=== PATIENT | male | born 1955 | race Caucasian/White ===

== ENCOUNTER 2017-05-08 19:05 | Emergency (ER) | payer MEDICARE ==
[2017-05-08 19:16] VITALS: BP 153/93
--- NOTE | 2017-05-08 20:11 | ERNOTE ---
Medical Problem HPI - Narrative Date of Service: 05/08/17 - General Chief Complaint: General Assessment Time Seen by Provider: 05/08/17 20:02 Source: patient, RN notes reviewed, old records Exam Limitations: intoxication - Immun/Allergies/Home Medications Immunizations: IMMUNIZATION HX Immunizations Up to Date No History of Influenza Vaccine No Hx Pneumococcal Vaccination No Allergies/Adverse Reactions: Allergies Iodinated Contrast Media - Oral and [IV Dye, Iodine Containing Contrast ] Allergy (Severe, Verified 04/10/16 17:30) Swelling (Other) Pt states swelling "all over." Home Medications: HOME MEDICATIONS Gabapentin 1,200 mg PO TID 12/02/12 [Last Taken 10/25/15] Naproxen Sodium [Aleve] 440 mg PO TID PRN 09/24/14 [Last Taken 10/25/15] Meclizine HCl 25 mg PO 05/08/17 [Last Taken Unknown] - History of Present History Narrative: 61 y/o male brought to the ED by a relative for increased falls and fatigue for the past few days. He has an appointment to see his PCP tomorrow. He has chronic back pain with neuropathy in his lower extremities. He also has a history of alcohol abuse. He reports that he has only had 2 beers today, but he appears quite intoxicated. He is dirty and incontinent of urine. Review of Systems - Review of Systems Constitutional: Present: fatigue, decreased activity level. Absent: fever, chills EYE: Present: no symptoms reported ENT: Present: no symptoms reported Respiratory: Absent: shortness of breath, cough Cardiology: Absent: chest pain, syncope Gastrointestinal/Abdominal: Present: eating less, drinking less. Absent: vomiting, diarrhea, abdominal pain Genitourinary: Present: no symptoms reported Musculoskeletal: Present: back pain, muscle pain Skin: Present: no symptoms reported Neurological: Present: numbness, tingling, pre-existing deficit. Absent: dizziness/light-headedness, weakness Endocrine: Present: no symptoms reported Hematologic/Lymphatic: Absent: easy bruising, easy bleeding Psych: Present: anxiety, depressed, emotional problems - Patient's Past Medical History Patient History - Medical: Alcohol Abuse, Anxiety, Chronic Pain, Depression, GERD, Other Patient History - Cardiac/Respiratory: Asthma, Coronary Heart Disease, Hypertension, Hyperlipidemia, Myocardial Infarction Patient History - Cancer: No Hx of Cancer Patient History - Surgical Procedures: Amputation, Cardiac stent, Other Patient History - Other: None - Family History Mother Family History - Medical: Family History - Cardiac/Respiratory: Myocardial Infarction Father Family History - Medical: , Other - Social History Living Situations: alone Abuse History: Hx -Substance Use Tx Psych History: Hx of Anxiety, Hx of Depression Smoking Status: Current every day smoker Cigarettes Packs Per Day: 1 Have you smoked in the past 12 months: Yes Do you dip or chew tobacco: No Patient requests Smoking Cessation Consult: No Initiate information on Smoking Cessation: No Alcohol Use: heavy Drug Use: none - Immunizations Immunizations Up to Date: No Hx Pneumococcal Vaccination: No History of Influenza Vaccine: No Physical Exam - Physical Exam General Appearance: Present: alert, no apparent distress, thin, other - Poor hygiene, incontinent of urine Head Exam: Present: normal inspection, no evidence of injury Eye Exam: Normal inspection: bilateral, PERRL: bilateral Ears, Nose, Throat: Present: normal ENT inspection Neck: Present: normal inspection, nontender, supple Respiratory: Present: no respiratory distress, normal breath sounds, no accessory muscle use, lungs clear Cardiovascular/Chest: Present: regular rate, rhythm, no murmur, normal peripheral pulses Extremity Exam: Present: normal except - - Right BKA Neurological Exam: Present: alert, oriented, no motor/sensory deficits, other - intoxicated. Absent: normal mood/affect Skin Exam: Present: normal color, warm/dry ED Progress - Results and Orders Patient's Lab Results:: I have reviewed the patient's lab results. - Vital Signs Patient's Vital Signs:: I have reviewed the patient's vital signs. Vital Signs: Vital Signs 05/08/17 19:10 Temperature 36.6 C Pulse Rate 70 Respiratory 18 Rate Blood Pressure 153/93 O2 Sat by Pulse 92 Oximetry - Progress/Reassessment Chief Complaint: General Assessment Progress:: Unchanged Plan - Plan Plan: ETOH level does not correlate with the 2 beers the patient reports having today. After being in the department for a time, he does not wish to stay for any further treatment, but his lab work is unremarkable. Has an appt. with PCP tomorrow. Departure - Departure Clinical Impression: Frequent falls, Alcohol abuse Disposition: Home Follow Up Needed Condition: Stable Instructions: Alcohol Abuse and Nutrition Additional Instructions: See Dr. Jara as scheduled tomorrow Stop drinking alcohol Referrals: Winnie Jara MD [Primary Care Provider] -
--- OUTSIDE RECORDS SUMMARY | 2017-05-08 20:13 | XMS REPORT | Continuity of Care Document ---
:1955 Author Organization [facility] ([facility]) Address [address] [place] [address] Phone [phone] Care Team Providers Name Role Phone Too Major Primary Care Provider [phone] Source Comments This disclosure is being made pursuant to the Care Everywhere program, applicable federal and state laws, and may not contain all informaitonavailable regarding this patient.[facility] ([facility]) Active Allergies and Adverse Reactions No Active Allergies Current Medications Not on file Active Problems Problem Noted Date Abscess of lung(513.0) 01/05/2007 Pneumonia, organism unspecified 09/30/2006 Other and unspecified alcohol dependence, unspecified drinking behavior 2005 Shortness of breath 09/05/2006 Other dyspnea and respiratory abnormality 09/05/2006 Swelling, mass, or lump in chest 09/05/2006 Immunizations Name Dates Previously Given Next Due Influenza, unspecified 09/04/2005 Social History Tobacco Use Types Packs/Day Years Used Date Never Assessed Last Filed Vital Signs Vital Sign Reading Time Taken Blood Pressure 143/77 01/05/2007 1:49 PM PODIATRIC PHYSICIAN Pulse 74 01/05/2007 1:49 PM PODIATRIC PHYSICIAN Temperature 36 C (96.8 F) 01/05/2007 1:49 PM PODIATRIC PHYSICIAN Respiratory Rate 16 01/05/2007 1:49 PM PODIATRIC PHYSICIAN Height 1.89 m (6' 2.4") 09/05/2006 12:17 PM CDT Weight 78.5 kg (173 lb 1 oz) 01/05/2007 1:49 PM PODIATRIC PHYSICIAN Body Mass Index 21.98 01/05/2007 1:49 PM PODIATRIC PHYSICIAN Oxygen Saturation - - Plan of Care Health Maintenance Due Date Last Done Comments Hepatitis B Vaccine (1 of 3 - Primary Series) 1955 Tdap Vaccine 1964 Lipid Disorder Screening 1971 Td Vaccine 1971 Pneumococcal Vaccine (1 of 1 - PPSV23) 1972 Colonoscopy 2003 Prostate Cancer Screening 2003 Zoster Vaccine 2013 Influenza Vaccine: Seasonal (#1) 06/21/2016 09/04/2005 HCV Screening Completed 09/06/2006 Results from Last 3 Months Not on file
[2017-05-08] MEDS ORDERED: MULTIVIT INFUSN,ADULT 4,VIT K 10 ML, THIAMINE HCL 100 MG in NORMAL SALINE 1,000 ML IV SCH (20:15)
[2017-05-08 20:20] LABS: Hematocrit 46.1 % (42.0-52.0); Mean Cell Volume 94.5 fl (78-100); Mean Corpuscular Hemoglobin 32.8 pg (27-31); Mean Corpuscular Hgb Conc 34.7 g/dl (32-36); Mean Platelet Volume 11.6 fl (6.0-9.5); Neutrophil # 2.6 K/mm3 (1.3-6.0); Neutrophil % 45.9 % (42-75.0); Platelet Count 95 K/mm3 (150-450); Red Blood Count 4.88 M/mm3 (4.7-6.0); Red Cell Distribution Width 14.3 % (11.5-14.0); White Blood Count 5.6 K/mm3 (4.0-10.5)
[2017-05-08 20:34] LABS: Albumin * 3.6 gm/dl (3.4-5.0); Anion Gap 15.8 mmol/L (6.8-13.8); BUN/Creatinine Ratio 7.2 (9.0-21.6); Bilirubin, Total 0.9 mg/dL (0.0-1.1); Ca. Corrected For Albumin 8.7 mg/dL (8.4-10.2); Calcium * 8.7 mg/dL (7.9-10.9); Carbon Dioxide 29.1 mmol/L (24-32.6); Potassium 3.9 mmol/L (3.4-4.6); Total Protein 7.6 gm/dL (6.2-8.2)
== END 2017-05-08 20:45 | disposition home or self-care (01) ==
LOC: ER 19:05
DX: F10.10 Alcohol abuse, uncomplicated (principal); R29.6 Repeated falls
CPT/HCPCS: 36415; 80053; 85025; 99282; G0481

== ENCOUNTER 2017-06-14 14:51 | Inpatient (IN) | payer MEDICARE ==
[2017-06-14 15:54] LABS: Hematocrit 39.3 % (42.0-52.0); Hemoglobin 13.3 gm/dL (13.5-18.0); Mean Cell Volume 99.5 fl (78-100); Mean Corpuscular Hemoglobin 33.7 pg (27-31); Mean Corpuscular Hgb Conc 33.8 g/dl (32-36); Mean Platelet Volume 10.7 fl (6.0-9.5); Neutrophil # 2.8 K/mm3 (1.3-6.0); Neutrophil % 49.6 % (42-75.0); Platelet Count 262 K/mm3 (150-450); Red Blood Count 3.95 M/mm3 (4.7-6.0); Red Cell Distribution Width 13.2 % (11.5-14.0); White Blood Count 5.6 K/mm3 (4.0-10.5)
[2017-06-14 15:57] LABS: Albumin * 2.9 gm/dl (3.4-5.0); Anion Gap 11.1 mmol/L (6.8-13.8); BUN/Creatinine Ratio 8.2 (9.0-21.6); Bilirubin, Total 0.4 mg/dL (0.0-1.1); CRP 2.8 mg/dL (0.0-0.9); Ca. Corrected For Albumin 8.8 mg/dL (8.4-10.2); Calcium * 8.2 mg/dL (7.9-10.9); Carbon Dioxide 31.3 mmol/L (24-32.6); Potassium 3.4 mmol/L (3.4-4.6); Total Protein 7.2 gm/dL (6.2-8.2); Uric Acid 4.1 mg/dL (2.6-7.2)
--- NOTE | 2017-06-14 16:11 | CONS ---
[facility] - General Date of Service: 06/14/17 Narrative: Consultation on Jose J Decker-patient's hip request of Dr. Jara for concern of septic olecranon bursitis right elbow and right below knee and amputation wound. He reports his right elbow has been swollen and boggy for about a month. He reports about a week ago he was unable to start expressing fluid from it when he squeezes it. He reports becoming increasingly sore so presented to Dr. Jara's office today for evaluation. He also reports that his prosthesis is been rubbing on his right lower extremity is cut a superficial ulceration. He reports no drainage from this ulceration or pain. - History of Present Illness Allergies/Adverse Reactions: Allergies Iodinated Contrast Media - Oral and [IV Dye, Iodine Containing Contrast ] Allergy (Severe, Verified 04/10/16 17:30) Swelling (Other) Pt states swelling "all over." Home Medications: Home Medications Medication Instructions Recorded Last Taken Gabapentin 1,200 mg PO TID 12/02/12 10/25/15 Naproxen Sodium [Aleve] 440 mg PO TID PRN 09/24/14 10/25/15 Meclizine HCl 25 mg PO 05/08/17 Unknown - Patient's Past Medical History Patient History - Medical: Alcohol Abuse, Anxiety, Chronic Pain, Depression, GERD, Other Patient History - Cardiac/Respiratory: Asthma, Myocardial Infarction Patient History - Cancer: No Hx of Cancer Patient History - Surgical Procedures: Amputation, Cardiac stent, Other Patient History - Other: None - Family History Mother Family History - Medical: Family History - Cardiac/Respiratory: Myocardial Infarction Father Family History - Medical: , Other - Social History Living Situations: alone Abuse History: Hx -Substance Use Tx Psych History: Hx of Anxiety, Hx of Depression Alcohol Use: heavy Drug Use: none - Immunizations Immunizations Up to Date: No Hx Pneumococcal Vaccination: No History of Influenza Vaccine: No Procedures AMPUTATION STUMP SHO (03/19/15) CARDIOPULM RESUSCITA NOS (09/21/10) COLONOSCOPY (01/20/10) INJECT/INFUSE THROMBOLYTIC AGENT (09/21/10) OTHER LOCAL DESTRUC SKIN (12/16/14) Physical Examination - Exam Narrative: Dressings remove Mr. Decker's right elbow bloody serous drainage noted from the pinpoint opening that is about a millimeter in diameter. Skin is swollen and boggy with mild erythema. Skin was cleaned with chlorhexidine 22-gauge needle used to aspirate approximately 2 mL's of bloody serous fluid which will be sent for culture. Elbow range of motion does not produce any pain in the joint and his infection does not appear to involve the joint. X-rays reviewed show lucency of olecranon concerning for possible bone involvement of this infection. Examination of right lower extremity after taken off prosthesis shows an ulceration medial stump. Ulceration is approximately 4 mm x 3 mm with a depth of 2 mm. This clean and mild periwound erythema noted. No active drainage. The knee joint is not swollen or tender. No pain with knee joint range of motion. X-rays reviewed show degenerative changes of the knee joint and postsurgical changes consistent with his below-knee amputation. Vital Signs: Vital Signs - Last Taken Temp 36.6 C 05/08/17 20:45 Pulse Resp BP 153/93 05/08/17 20:45 Pulse Ox - Results and Findings: Lab/Microbiology results last 24 hrs: Abnormal/Pending Laboratory Last 24 HRS 06/14/17 06/14/17 15:25 15:25 RBC 3.95 L Hgb 13.3 L Hct 39.3 L MCH 33.7 H MPV 10.7 H Monocytes % 12.5 H BUN 5 L Est GFR (Non-Af Amer) 142 H BUN/Creatinine Ratio 8.2 L AST 73 H Alkaline Phosphatase 223 H C-Reactive Prot, Quant 2.8 H Albumin 2.9 L - Assessments/Findings (1) Septic olecranon bursitis of right elbow Diagnosis(s): At this point time with aspirate for cultures. Recommend starting his IV antibiotics. Change dressings as needed for drainage. We'll see how he responds to IV antibiotics Problem: Acute (2) BKA stump complication Diagnosis(s): Recommend he stop wearing his prosthesis on the right looks showed allow for partial ulceration to heal. Band-Aid applied to wound. Problem: Acute
[2017-06-14] MEDS ORDERED: ACETAMINOPHEN 325 MG TABLET PO PRN (16:20)
[2017-06-14] MEDS: ceFAZolin SODIUM 1 GM in DEXTROSE 5 % IN WATER 100 ML IV SCH ×4 (17:09→23:24)
[2017-06-14] MEDS: GABAPENTIN 600 MG TABLET PO SCH (20:58)
[2017-06-15] MEDS: ceFAZolin SODIUM 1 GM in DEXTROSE 5 % IN WATER 100 ML IV SCH ×8 (05:30→22:47)
[2017-06-15] MEDS: GABAPENTIN 600 MG TABLET PO SCH ×3 (07:36→20:19)
[2017-06-15] MEDS: ENOXAPARIN SODIUM 40 MG/0.4 ML SYRG SC SCH (09:58)
--- NOTE | 2017-06-15 13:19 | PN ---
Subjective - Date and Time Seen Date: 06/15/17 Time: 13:12 Subjective Narrative: afebrile. feels better. he says he cannot use crutches or walker when he is not uisng his porsthesis as he has poor balance. Objective - Review of Systems Generalized/Overall Review: Reports: Weakness. Denies: Chills, Fever EENTM: Reports: No Symptoms Reported Respiratory: Denies: Cough, Shortness of Breath Cardiac: Denies: Chest Pain, Palpitations Abdominal: Denies: Nausea, Vomiting Genitourinary Symptoms: Denies: Urgency, Frequency Musculoskeletal Complaints: Reports: Joint Pain - Vitals Vitals: Last Vital Signs Temp 36.4 C L 06/15/17 11:25 Pulse 84 06/15/17 11:25 Resp 18 06/15/17 11:25 BP 124/78 06/15/17 11:25 Pulse Ox 94 06/15/17 11:25 - Abnormal Lab Findings Abnormal Lab Findings: Abnormal Lab Results 06/14/17 06/14/17 06/14/17 Range/Units 15:25 15:25 15:25 RBC 3.95 L (4.7-6.0) M/mm3 Hgb 13.3 L (13.5-18.0) gm/dL Hct 39.3 L (42.0-52.0) % MCH 33.7 H (27-31) pg MPV 10.7 H (6.0-9.5) fl Monocytes % 12.5 H (0.0-9) % ESR 41 H (0-10) mm/hr BUN 5 L (6-23) mg/dL Est GFR (Non-Af Amer) 142 H (60-130) mL/min BUN/Creatinine Ratio 8.2 L (9.0-21.6) AST 73 H (0-48) U/L Alkaline Phosphatase 223 H (50-170) U/L C-Reactive Prot, Quant 2.8 H (0.0-0.9) mg/dL Albumin 2.9 L (3.4-5.0) gm/dl - Exam Constitutional: Present: Alert, Oriented x3, Cooperative, Thin and frail ENT Exam: Present: hearing grossly normal Neck: Present: supple Breasts: Present: Exam deferred Respiratory: Present: normal breath sounds, No rales, No wheezing Cardiovascular/Chest: Present: regular rate, rhythm, no JVD, no murmur Abdomen: Present: Normal bowel sounds, soft, nontender, nondistended Extremity: Present: no calf tenderness, other - positive inflammed/infected olecranon bursa, right elbow, positive RBKA Assessment/Plan - Problems/Diagnosis (1) BKA stump complication Problem: Acute Narrative: pressure ulcer, right knee. Prosthetic company will need to measure/adjust or give new prosthesis . (2) Septic olecranon bursitis of right elbow Problem: Acute Narrative: continue IV Ancef. preliminary culture -NG. (3) Hypertension Problem: Acute Qualifiers: Hypertension type: essential hypertension Qualified Code(s): I10 - Essential (primary) hypertension (4) Coronary artery disease Problem: Chronic Qualifiers: Coronary Disease-Associated Artery/Lesion type: unspecified vessel or lesion type Associated angina: without angina Narrative: s/p Stenting (5) Hyperlipidemia Problem: Chronic (6) Neuropathy Problem: Chronic (7) Cervical spinal stenosis Problem: Chronic
--- NOTE | 2017-06-15 13:34 | PN ---
Subjective - Date and Time Seen Date: 06/15/17 Time: 13:31 Subjective Narrative: Reports elbow is "sore". Denies increasing pain. Reports he does not feel sick. No complaints. Objective Objective Narrative: Jian wrap removed, less erythema of olecranon skin, swelling, serous drainage on 2x2, elbow ROM does not express fluid, culture positive for MRSA. - Vitals Vitals: Last Vital Signs Temp 36.4 C L 06/15/17 11:25 Pulse 84 06/15/17 11:25 Resp 18 06/15/17 11:25 BP 124/78 06/15/17 11:25 Pulse Ox 94 06/15/17 11:25 - Abnormal Lab Findings Abnormal Lab Findings: Abnormal Lab Results 06/14/17 06/14/17 06/14/17 Range/Units 15:25 15:25 15:25 RBC 3.95 L (4.7-6.0) M/mm3 Hgb 13.3 L (13.5-18.0) gm/dL Hct 39.3 L (42.0-52.0) % MCH 33.7 H (27-31) pg MPV 10.7 H (6.0-9.5) fl Monocytes % 12.5 H (0.0-9) % ESR 41 H (0-10) mm/hr BUN 5 L (6-23) mg/dL Est GFR (Non-Af Amer) 142 H (60-130) mL/min BUN/Creatinine Ratio 8.2 L (9.0-21.6) AST 73 H (0-48) U/L Alkaline Phosphatase 223 H (50-170) U/L C-Reactive Prot, Quant 2.8 H (0.0-0.9) mg/dL Albumin 2.9 L (3.4-5.0) gm/dl - Exam Constitutional: Present: Alert, Cooperative, No distress Assessment/Plan - Problems/Diagnosis (1) Septic olecranon bursitis of right elbow Problem: Acute Narrative: IV antibiotics, wound care, keep dry dressings on elbow, compression with jian wrap. (2) BKA stump complication Problem: Acute
[2017-06-15] MEDS: traMADol HCL 50 MG TABLET PO PRN (14:59)
[2017-06-15] MEDS ORDERED: VANCOMYCIN HCL 1 GM in DEXTROSE 5 % IN WATER 250 ML IV SCH ×2 (15:30)
[2017-06-15] MEDS: VANCOMYCIN HCL 1.25 GM in DEXTROSE 5 % IN WATER 250 ML IV SCH ×4 (19:25→19:26)
[2017-06-16] MEDS: traMADol HCL 50 MG TABLET PO PRN ×2 (00:46→21:15)
[2017-06-16] MEDS: VANCOMYCIN HCL 1.25 GM in DEXTROSE 5 % IN WATER 250 ML IV SCH ×4 (02:58→15:16)
[2017-06-16] MEDS: ceFAZolin SODIUM 1 GM in DEXTROSE 5 % IN WATER 100 ML IV SCH ×8 (05:03→22:05)
[2017-06-16] MEDS: GABAPENTIN 600 MG TABLET PO SCH ×3 (07:28→21:15)
--- NOTE | 2017-06-16 08:28 | PN ---
Subjective - Date and Time Seen Date: 06/16/17 Time: 08:23 Subjective Narrative: patient feeling better. PT is deferring gait exercises due to elbow and patient unless prosthesis is fixed. Objective - Review of Systems Generalized/Overall Review: Reports: Weakness. Denies: Chills, Fever EENTM: Reports: No Symptoms Reported Respiratory: Denies: Cough, Shortness of Breath Cardiac: Denies: Chest Pain, Palpitations Abdominal: Denies: Nausea, Vomiting Genitourinary Symptoms: Denies: Urgency, Frequency Musculoskeletal Complaints: Reports: Joint Pain - Vitals Vitals: Last Vital Signs Temp 36.8 C 06/16/17 05:40 Pulse 73 06/16/17 05:40 Resp 18 06/16/17 05:40 BP 120/74 06/16/17 05:40 Pulse Ox 93 06/16/17 05:40 - Exam Constitutional: Present: Alert, Oriented x3, Cooperative ENT Exam: Present: hearing grossly normal Neck: Present: supple Breasts: Present: Exam deferred Respiratory: Present: decreased breath sounds, No rales, No wheezing Cardiovascular/Chest: Present: regular rate, rhythm, no JVD, no murmur Extremity: Present: no pedal edema, other - positive RBKA, pressure ulcer, medial tibial plateau, old circumferential scar from prior ulcer, medial femoral condyle. right elbow infected olecranon burisits Assessment/Plan - Problems/Diagnosis (1) Septic olecranon bursitis of right elbow Problem: Acute Narrative: 3rd day of IV antibiotic, question of OM. will get MRI . will talk to Ortho. (2) BKA stump complication Problem: Acute (3) Hypertension Problem: Acute Qualifiers: Hypertension type: essential hypertension Qualified Code(s): I10 - Essential (primary) hypertension (4) Coronary artery disease Problem: Chronic Qualifiers: Coronary Disease-Associated Artery/Lesion type: unspecified vessel or lesion type Associated angina: without angina (5) Hyperlipidemia Problem: Chronic (6) Neuropathy Problem: Chronic (7) Cervical spinal stenosis Problem: Chronic
[2017-06-16] MEDS: ENOXAPARIN SODIUM 40 MG/0.4 ML SYRG SC SCH (09:27)
[2017-06-16] MEDS ORDERED: LORazepam 2 MG/ML DISP.SYRIN IV ONE (14:12)
[2017-06-16] MEDS ORDERED: LORazepam 2 MG/ML DISP.SYRIN ONE ×2 (14:18→14:19)
[2017-06-17] MEDS: VANCOMYCIN HCL 1.25 GM in DEXTROSE 5 % IN WATER 250 ML IV SCH ×2 (03:04)
[2017-06-17] MEDS: ceFAZolin SODIUM 1 GM in DEXTROSE 5 % IN WATER 100 ML IV SCH ×2 (05:06)
[2017-06-17 05:46] LABS: Hemoglobin 13.8 gm/dL (13.5-18.0); Mean Cell Volume 98.3 fl (78-100); Mean Corpuscular Hemoglobin 33.9 pg (27-31); Mean Corpuscular Hgb Conc 34.5 g/dl (32-36); Neutrophil # 2.9 K/mm3 (1.3-6.0); Neutrophil % 50.6 % (42-75.0); Platelet Count 235 K/mm3 (150-450); Red Blood Count 4.07 M/mm3 (4.7-6.0); White Blood Count 5.7 K/mm3 (4.0-10.5)
[2017-06-17 06:01] LABS: BUN/Creatinine Ratio 9.5 (9.0-21.6); CRP 1.6 mg/dL (0.0-0.9); Calcium * 8.5 mg/dL (7.9-10.9); Carbon Dioxide 31.7 mmol/L (24-32.6); Estimated Creat Clear 139.5; Potassium 3.7 mmol/L (3.4-4.6)
[2017-06-17] MEDS: GABAPENTIN 600 MG TABLET PO SCH ×3 (06:34→21:07)
[2017-06-17] MEDS: ENOXAPARIN SODIUM 40 MG/0.4 ML SYRG SC SCH (08:55)
--- NOTE | 2017-06-17 10:01 | PN ---
Subjective - Date and Time Seen Date: 06/17/17 Time: 09:56 Subjective Narrative: Patien is afebrile. Culture is MRSA. [place] prosthesis has modified his prosthetisis. Objective - Review of Systems Generalized/Overall Review: Reports: Weakness. Denies: Chills, Fever EENTM: Reports: No Symptoms Reported Respiratory: Denies: Cough, Shortness of Breath Cardiac: Denies: Edema, Palpitations Abdominal: Denies: Nausea, Vomiting Musculoskeletal Complaints: Reports: Joint Pain - Vitals Vitals: Last Vital Signs Temp 36.4 C L 06/17/17 03:08 Pulse 61 06/17/17 03:08 Resp 18 06/17/17 03:08 BP 141/85 06/17/17 03:08 Pulse Ox 92 06/17/17 03:08 - Abnormal Lab Findings Abnormal Lab Findings: Abnormal Lab Results 06/17/17 06/17/17 06/17/17 Range/Units 05:43 05:43 05:43 RBC 4.07 L (4.7-6.0) M/mm3 Hct 40.0 L (42.0-52.0) % MCH 33.9 H (27-31) pg MPV 11.0 H (6.0-9.5) fl Monocytes % 10.9 H (0.0-9) % ESR 24 H (0-10) mm/hr Est GFR (Non-Af Amer) 137 H (60-130) mL/min Random Glucose 115 H (70-110) mg/dL C-Reactive Prot, Quant 1.6 H (0.0-0.9) mg/dL - Exam Constitutional: Present: Alert, Oriented x3, Cooperative ENT Exam: Present: hearing grossly normal Neck: Present: supple Breasts: Present: Exam deferred Respiratory: Present: decreased breath sounds, No rales, No wheezing Cardiovascular/Chest: Present: regular rate, rhythm, no JVD, no murmur Abdomen: Present: Normal bowel sounds, soft, nontender, nondistended Extremity: Present: no calf tenderness, other - RBKA, positive pressure ulcer , positive infectged olecfranon bursa Assessment/Plan - Problems/Diagnosis (1) Septic olecranon bursitis of right elbow Problem: Acute Narrative: on IV Vanco. for MRI of right elbow. will change to IV Bactrim . ADDENDUM: MRI again was not succesful today despite anesthesia. will dicsuss with Ortho. (2) BKA stump complication Problem: Acute Narrative: will do aquacel Ag and cover with mepilex. (3) Hypertension Problem: Acute Qualifiers: Hypertension type: essential hypertension Qualified Code(s): I10 - Essential (primary) hypertension (4) Coronary artery disease Problem: Chronic Qualifiers: Coronary Disease-Associated Artery/Lesion type: unspecified vessel or lesion type Associated angina: without angina (5) Hyperlipidemia Problem: Chronic (6) Neuropathy Problem: Chronic (7) Cervical spinal stenosis Problem: Chronic
[2017-06-17] MEDS: SULFAMETHOXAZOLE/TRIMETHOPRIM 10 ML in DEXTROSE 5 % IN WATER 250 ML IV SCH ×4 (11:21→23:16)
[2017-06-17] MEDS: traMADol HCL 50 MG TABLET PO PRN (19:28)
[2017-06-18] MEDS: GABAPENTIN 600 MG TABLET PO SCH ×3 (06:34→20:51)
[2017-06-18] MEDS: ENOXAPARIN SODIUM 40 MG/0.4 ML SYRG SC SCH (08:48)
[2017-06-18] MEDS: SULFAMETHOXAZOLE/TRIMETHOPRIM 10 ML in DEXTROSE 5 % IN WATER 250 ML IV SCH ×4 (10:32→23:04)
--- NOTE | 2017-06-18 14:07 | PN ---
Subjective - Date and Time Seen Date: 06/18/17 Time: 14:05 Subjective Narrative: patient did have his MRI yesterday. Objective - Review of Systems Generalized/Overall Review: Reports: Weakness. Denies: Chills, Fever EENTM: Reports: No Symptoms Reported Respiratory: Denies: Cough, Shortness of Breath Cardiac: Denies: Chest Pain, Palpitations Abdominal: Denies: Nausea, Vomiting Genitourinary Symptoms: Denies: Urgency, Frequency Musculoskeletal Complaints: Reports: Joint Pain - Vitals Vitals: Last Vital Signs Temp 36.4 C L 06/18/17 10:07 Pulse 73 06/18/17 10:07 Resp 16 06/18/17 10:07 BP 100/53 06/18/17 10:07 Pulse Ox 97 06/18/17 10:07 - Exam Constitutional: Present: Alert, Oriented x3, Cooperative, Thin and frail ENT Exam: Present: hearing grossly normal Neck: Present: supple Breasts: Present: Exam deferred Respiratory: Present: decreased breath sounds, No rales, No wheezing Cardiovascular/Chest: Present: regular rate, rhythm, no gallop, no JVD Abdomen: Present: Normal bowel sounds, soft, nontender, nondistended Extremity: Present: no calf tenderness, other - right pressure ulcer, knee, Positive infecterd olecranon bursitis Assessment/Plan - Problems/Diagnosis (1) Septic olecranon bursitis of right elbow Problem: Acute Narrative: Continue IV antibiotics. MRI suspicious OM of the olecranon. will order for PICC line once suspicion is verified by Ortho. (2) BKA stump complication Problem: Acute Narrative: continue with Aquacel Ag and Mepilex for protection. (3) Hypertension Problem: Acute Qualifiers: Hypertension type: essential hypertension Qualified Code(s): I10 - Essential (primary) hypertension (4) Coronary artery disease Problem: Chronic Qualifiers: Coronary Disease-Associated Artery/Lesion type: unspecified vessel or lesion type Associated angina: without angina (5) Hyperlipidemia Problem: Chronic (6) Neuropathy Problem: Chronic (7) Cervical spinal stenosis Problem: Chronic
[2017-06-18] MEDS ORDERED: VANCOMYCIN HCL LEVEL XX ONE (15:00)
[2017-06-19] MEDS: GABAPENTIN 600 MG TABLET PO SCH ×3 (06:38→20:12)
[2017-06-19] MEDS: traMADol HCL 50 MG TABLET PO PRN (06:38)
[2017-06-19] MEDS: ENOXAPARIN SODIUM 40 MG/0.4 ML SYRG SC SCH (09:22)
--- NOTE | 2017-06-19 09:35 | PN ---
Subjective - Date and Time Seen Date: 06/19/17 Time: 09:26 Subjective Narrative: Afebrile. On IV Bactrim per sensitivity. Vanco SARAN is 2 . day # 6 of IV antibiotics. patient's last surgery was last year and did not have any anesthesia, cardiopulmonary/bleeding complications. . He denies CP/ palpitations. Admits to SOB with exertion. He is a smoker. Will do CBC, BMP, INR , EKG, CXR today. He can proceed with anticipated surgery pending labs. ADDENDUM: CBC and BMP are WNL, EKG showed NSR, CXR showed no acute cardiopulmonary findings. He may proceed with anticipated surgery of bursectomy , debridement and bone biopsy. Objective - Review of Systems Generalized/Overall Review: Denies: Weakness, Chills, Fever EENTM: Reports: No Symptoms Reported Respiratory: Denies: Cough, Shortness of Breath Cardiac: Denies: Chest Pain, Edema, Palpitations Abdominal: Denies: Nausea, Vomiting Genitourinary Symptoms: Denies: Urgency, Frequency Musculoskeletal Complaints: Reports: Joint Pain - Vitals Vitals: Last Vital Signs Temp 36.4 C L 06/19/17 06:31 Pulse 76 06/19/17 06:31 Resp 16 06/19/17 06:31 BP 139/86 06/19/17 06:31 Pulse Ox 94 06/19/17 06:31 - Abnormal Lab Findings Abnormal Lab Findings: Abnormal Lab Results 06/18/17 Range/Units 14:46 Vancomycin Trough 4.2 L (10.0-20.0) mcg/mL - Exam Constitutional: Present: Oriented x3, Cooperative ENT Exam: Present: hearing grossly normal Neck: Present: supple Breasts: Present: Exam deferred Respiratory: Present: decreased breath sounds, No rales, No wheezing Cardiovascular/Chest: Present: regular rate, rhythm, no JVD, no murmur Abdomen: Present: Normal bowel sounds, soft, nontender, nondistended Extremity: Present: other - right BKA, right infected olecranon bursa, right pressure ulcer , knee Assessment/Plan - Problems/Diagnosis (1) Septic olecranon bursitis of right elbow Problem: Acute Narrative: MRSA on culture. MRI is suspicious for OM , right olecranon. continue with IV antibiotics. Discussed with Ortho- possible surgery in the morning. (2) BKA stump complication Problem: Acute (3) Hypertension Problem: Acute Qualifiers: Hypertension type: essential hypertension Qualified Code(s): I10 - Essential (primary) hypertension (4) Coronary artery disease Problem: Chronic Qualifiers: Coronary Disease-Associated Artery/Lesion type: unspecified vessel or lesion type Associated angina: without angina (5) Hyperlipidemia Problem: Chronic (6) Neuropathy Problem: Chronic (7) Cervical spinal stenosis Problem: Chronic
[2017-06-19 10:06] LABS: Hematocrit 43.4 % (42.0-52.0); Hemoglobin 14.3 gm/dL (13.5-18.0); Mean Cell Volume 100.7 fl (78-100); Mean Corpuscular Hemoglobin 33.2 pg (27-31); Mean Corpuscular Hgb Conc 32.9 g/dl (32-36); Mean Platelet Volume 10.9 fl (6.0-9.5); Neutrophil % 56.8 % (42-75.0); Platelet Count 253 K/mm3 (150-450); Red Blood Count 4.31 M/mm3 (4.7-6.0); Red Cell Distribution Width 13.1 % (11.5-14.0)
[2017-06-19 10:23] LABS: Anion Gap 10.9 mmol/L (6.8-13.8); BUN/Creatinine Ratio 12.3 (9.0-21.6); Calcium * 8.8 mg/dL (7.9-10.9); Carbon Dioxide 30.5 mmol/L (24-32.6); Estimated Creat Clear 120.4; Potassium 4.4 mmol/L (3.4-4.6)
[2017-06-19 10:24] LABS: Prothrombin Time (Patient) 10.2 Seconds (9.4-11.4)
[2017-06-19 10:26] LABS: INR 0.98 INR (0.90-1.10)
[2017-06-19] MEDS: NICOTINE 21 MG PATC TD SCH (10:50)
[2017-06-19] MEDS: SULFAMETHOXAZOLE/TRIMETHOPRIM 10 ML in DEXTROSE 5 % IN WATER 250 ML IV SCH ×4 (10:51→23:00)
--- NOTE | 2017-06-19 13:37 | PN ---
Subjective - Date and Time Seen Date: 06/19/17 Time: 13:35 Subjective Narrative: He reports improved pain. He still has some swelling. He did undergo a partial MRI with sedation which was concerning for osteomyelitis but overall he feels he is doing better. Objective - Vitals Vitals: Last Vital Signs Temp 36.4 C L 06/19/17 10:22 Pulse 71 06/19/17 10:22 Resp 16 06/19/17 10:22 BP 132/87 06/19/17 10:22 Pulse Ox 98 06/19/17 10:22 - Abnormal Lab Findings Abnormal Lab Findings: Abnormal Lab Results 06/18/17 06/19/17 06/19/17 Range/Units 14:46 10:00 10:00 RBC 4.31 L (4.7-6.0) M/mm3 MCV 100.7 H (78-100) fl MCH 33.2 H (27-31) pg MPV 10.9 H (6.0-9.5) fl Monocytes % 11.6 H (0.0-9) % Random Glucose 118 H (70-110) mg/dL Vancomycin Trough 4.2 L (10.0-20.0) mcg/mL - Exam Exam Narrative: Right upper extremity: Moderate erythema, serous type drainage from a small punctate wound at the tip of the olecranon, fullness to his elbow, no pain with elbow range of motion, tenderness at the tip of the olecranon, he is neurovascular intact Assessment/Plan Plan Narrative: Based on his MRI findings as well as ongoing MRSA positive olecranon bursitis, we will plan for excision of olecranon and possible bone biopsy versus partial excision of his olecranon. The risks and recovery were discussed. He will be nothing by mouth after midnight and consent will be obtained. - Problems/Diagnosis (1) Septic olecranon bursitis of right elbow Problem: Acute
[2017-06-20] MEDS: GABAPENTIN 600 MG TABLET PO SCH ×3 (07:45→20:23)
--- NOTE | 2017-06-20 07:57 | PREOP NOTE ---
Preoperative Progress Note - Preoperative Changes Changes to Preop Condition?: No Changes
--- NOTE | 2017-06-20 08:42 | PN ---
Subjective - Date and Time Seen Date: 06/20/17 Time: 08:39 Subjective Narrative: Patient is NPO for surgery today. Objective - Review of Systems Generalized/Overall Review: Denies: Weakness, Chills, Fever EENTM: Reports: No Symptoms Reported Respiratory: Denies: Cough, Shortness of Breath, Orthopnea Cardiac: Denies: Chest Pain, Edema, Palpitations Abdominal: Denies: Nausea, Vomiting Genitourinary Symptoms: Denies: Urgency, Frequency Musculoskeletal Complaints: Reports: Joint Pain - Vitals Vitals: Last Vital Signs Temp 36.4 C L 06/20/17 07:48 Pulse 78 06/20/17 07:48 Resp 18 06/20/17 07:48 BP 127/84 06/20/17 07:48 Pulse Ox 96 06/20/17 07:48 - Abnormal Lab Findings Abnormal Lab Findings: Abnormal Lab Results 06/19/17 06/19/17 Range/Units 10:00 10:00 RBC 4.31 L (4.7-6.0) M/mm3 MCV 100.7 H (78-100) fl MCH 33.2 H (27-31) pg MPV 10.9 H (6.0-9.5) fl Monocytes % 11.6 H (0.0-9) % Random Glucose 118 H (70-110) mg/dL - Exam Constitutional: Present: Alert, Oriented x3, Cooperative, Thin and frail ENT Exam: Present: hearing grossly normal Neck: Present: supple Breasts: Present: Exam deferred Respiratory: Present: decreased breath sounds, No rales, No wheezing Cardiovascular/Chest: Present: regular rate, rhythm, no JVD, no murmur Abdomen: Present: Normal bowel sounds, soft, nontender, nondistended Extremity: Present: no calf tenderness, other - pressure ulcer, tight knee; positive infected olecranon bursa Assessment/Plan - Problems/Diagnosis (1) Septic olecranon bursitis of right elbow Problem: Acute Narrative: on IV Bactrim for MRSA. Vanco SARAN is 2. for surgery today. if OM , will need PICC line for IV antibiotics for 4-6 weeks. (2) BKA stump complication Problem: Acute (3) Hypertension Problem: Acute Qualifiers: Hypertension type: essential hypertension Qualified Code(s): I10 - Essential (primary) hypertension (4) Coronary artery disease Problem: Chronic Qualifiers: Coronary Disease-Associated Artery/Lesion type: unspecified vessel or lesion type Associated angina: without angina (5) Hyperlipidemia Problem: Chronic (6) Neuropathy Problem: Chronic (7) Cervical spinal stenosis Problem: Chronic
[2017-06-20] MEDS: NICOTINE 21 MG PATC TD SCH (10:12)
[2017-06-20] MEDS: SULFAMETHOXAZOLE/TRIMETHOPRIM 10 ML in DEXTROSE 5 % IN WATER 250 ML IV SCH ×4 (11:19→23:15)
[2017-06-20] MEDS ORDERED: RINGER'S SOLUTION,LACTATED 1,000 ML IV ONE ×2 (13:15→13:53)
[2017-06-20] MEDS ORDERED: ceFAZolin SODIUM 1 GM VIAL IV ONE (13:30)
[2017-06-20] MEDS: ENOXAPARIN SODIUM 40 MG/0.4 ML SYRG SC SCH (13:53)
[2017-06-20] MEDS ORDERED: BUPIVACAINE HCL 50 ML VIAL IJ ONE (14:15)
[2017-06-20] MEDS: traMADol HCL 50 MG TABLET PO PRN ×2 (16:14→23:20)
[2017-06-21] MEDS: GABAPENTIN 600 MG TABLET PO SCH ×3 (07:09→20:12)
--- NOTE | 2017-06-21 08:02 | PN ---
Subjective - Date and Time Seen Date: 06/21/17 Time: 08:00 Subjective Narrative: No concerns this morning. His drain is in place and draining. He is using his right hand which I instructed him to limit as he was trying to eat with this while we were trying to limit his flexion to no greater than 45 Objective - Vitals Vitals: Last Vital Signs Temp 36.7 C 06/20/17 22:46 Pulse 71 06/21/17 05:01 Resp 12 06/21/17 05:01 BP 91/66 06/21/17 05:01 Pulse Ox 96 06/21/17 05:01 - Exam Exam Narrative: Right upper extremity: Dressings in place, he is flexing greater than I am would like him to, sensation is intact light touch, moving all fingers and thumb Assessment/Plan - Problems/Diagnosis (1) Septic olecranon bursitis of right elbow Problem: Acute Narrative: Limited his flexion as he is in a splint and I instructed him to avoid flexing greater than 45. With this reason he should use his left hand for most daily activities. We will monitor the drain and consider removing this. He can discharge when he is medically stable and follow up in approximately 1 week with orthopedics. Antibiotics are at the medicine discretion. He is to keep his splint clean and dry and intact
[2017-06-21] MEDS: ENOXAPARIN SODIUM 40 MG/0.4 ML SYRG SC SCH (09:36)
[2017-06-21] MEDS: NICOTINE 21 MG PATC TD SCH (09:44)
[2017-06-21] MEDS: SULFAMETHOXAZOLE/TRIMETHOPRIM 10 ML in DEXTROSE 5 % IN WATER 250 ML IV SCH ×4 (10:58→22:48)
[2017-06-21] MEDS: traMADol HCL 50 MG TABLET PO PRN (20:12)
[2017-06-22] MEDS ORDERED: BISACODYL 5 MG TABLET.DR PO ONE (04:44)
[2017-06-22] MEDS: GABAPENTIN 600 MG TABLET PO SCH ×3 (07:30→20:59)
[2017-06-22] MEDS: ENOXAPARIN SODIUM 40 MG/0.4 ML SYRG SC SCH (09:40)
[2017-06-22] MEDS: NICOTINE 21 MG PATC TD SCH (09:41)
[2017-06-22] MEDS: SULFAMETHOXAZOLE/TRIMETHOPRIM 10 ML in DEXTROSE 5 % IN WATER 250 ML IV SCH ×2 (12:06)
[2017-06-23] MEDS: SULFAMETHOXAZOLE/TRIMETHOPRIM 10 ML in DEXTROSE 5 % IN WATER 250 ML IV SCH ×2 (00:04)
[2017-06-23] MEDS: GABAPENTIN 600 MG TABLET PO SCH (06:48)
[2017-06-23 07:01] VITALS: BP 119/83
--- NOTE | 2017-06-23 08:03 | PN ---
Subjective - Date and Time Seen Date: 06/23/17 Time: 08:01 Subjective Narrative: No concerns this morning. His drain is in place and draining. Denies concerns. Drainage decreased. Splint intact Objective - Vitals Vitals: Last Vital Signs Temp 36.8 C 06/23/17 07:00 Pulse 95 06/23/17 07:00 Resp 18 06/23/17 07:00 BP 119/83 06/23/17 07:00 Pulse Ox 97 06/23/17 07:00 - Exam Exam Narrative: RUE : exam stable, NVI, splint in place, he continues to sit with his elbow flexed more than we instructed and reinforced that he needs to avoid elbow flexion Assessment/Plan - Problems/Diagnosis (1) Septic olecranon bursitis of right elbow Problem: Acute Narrative: OK to DC home. Keep splint in place, keep arm dry, follow-up next week w/ Ortho.
--- NOTE | 2017-06-23 09:24 | PN ---
Subjective - Date and Time Seen Date: 06/21/17 Time: 16:45 Subjective Narrative: Reports pain is improved. No fever, chills, n/v. Objective - Vitals Vitals: Last Vital Signs VSS, Afebrile - Exam Constitutional: Present: Alert, Oriented x3, Cooperative Respiratory: Present: lungs clear, normal breath sounds Cardiovascular/Chest: Present: regular rate, rhythm, no murmur Abdomen: Present: Normal bowel sounds, soft, nontender, nondistended Extremity: Present: other - Arm in bashir wrap Assessment/Plan - Problems/Diagnosis (1) Septic olecranon bursitis of right elbow Problem: Acute Narrative: Awaiting bone biopsy to see if ostemyelitis, this will help to determine need for IV vs PO antibiotics. Will continue IV antibiotics for now. If bone biopsy is negative will discharge on oral antibiotics.
--- NOTE | 2017-06-23 09:24 | PN ---
Subjective - Date and Time Seen Date: 06/22/17 Time: 17:00 Subjective Narrative: Jose J reports pain continues to improve. No fever, chills, n/v. He has no concerns. Ready to go home when able. Objective - Vitals Vitals: Last Vital Signs VSS, Afebrile - Exam Constitutional: Present: Alert, Oriented x3, Cooperative ENT Exam: Present: hearing grossly normal Respiratory: Present: lungs clear, normal breath sounds Cardiovascular/Chest: Present: regular rate, rhythm, no murmur Abdomen: Present: Normal bowel sounds, soft, nontender, nondistended Extremity: Present: other - Arm in bashir wrap Assessment/Plan - Problems/Diagnosis (1) Septic olecranon bursitis of right elbow Problem: Acute Narrative: Continues to do well clinically. Still waiting on bone biopsy to determine need for continued IV antiobiotics. To cover for possible osteomyelitis he needs to remain for IV antiobiotics.
--- NOTE | 2017-06-23 09:27 | DS ---
(1) Septic olecranon bursitis of right elbow Diagnosis(s): Jose J was admitted for swollen right elbow with suspicion for septic bursitis. He was started on Ancep and orthopedics were consulted. He had aspiration of fluid and culture was obtained that grew MRSA. Based on cultures he was ultimately put on IV bactrim for treatment of septic bursitis and possible osteomyelitis. A bone culture was performed by orthopedics. We waited on the cultures from the bone biopsy to determine route and duration of antibiotics. Bone biopsy was negative and he was discharged to home on oral antibiotics for continued treatment of septic bursitis. Problem: Acute (2) BKA stump complication Diagnosis(s): Was admitted with ulceration to his right BKA stump from prosthesis. Ortho was consulted and recommended not wearing prosthesis until ulceration healed. Problem: Acute Procedures Performed: see notes below List Procedures: 06/20/17 - Resection of right olecranon bursa and partial resection of proximal ulna for bone biopsy Discharge Disposition: Home self care Disposition: Home self-care Condition: Good Discharge Activity: Other - Keep right arm in splint and strait Discharge Diet: General/regular food Referrals: Winnie Jara MD [Primary Care Provider] - One Week Quinton Scott MD [Staff Physician] - (Next week) Problem Oriented Discharge Instructions to Patient/Family: Elbow Bursitis Additional Patient Instructions (free text): F/U with Dr Scott next week. on 06-30-17 @ 11:15 and , Follow up with Dr. Jara on 07-05-17 @ 10:30am. Avoid flexion (bending) of your elbow as instructed by Dr Scott. Keep your splint to your right arm in place. Keep clean and dry. Prescriptions (Any new or edited meds): Sulfamethoxazole/Trimethoprim [Bactrim Ds] 1 tab PO BID #28 tablet traMADol HCL [Ultram] 50 mg PO Q6H PRN #30 tablet PRN Reason: Pain Complete Home Medications List: Complete Home Medication List: Gabapentin 1,200 mg PO TID 12/02/12 Naproxen Sodium [Aleve] 220 mg PO Q12H PRN 09/24/14 Aspirin 81 mg PO DAILY 06/14/17 Nitroglycerin [Nitrolingual] 1 spray TL [id number] PRN 06/14/17 Sulfamethoxazole/Trimethoprim [Bactrim Ds] 1 tab PO BID #28 tablet 06/23/17 traMADol HCL [Ultram] 50 mg PO Q6H PRN #30 tablet 06/23/17 Meclizine HCl [Antivert] 25 mg PO TID PRN 07/07/17 Mirtazapine [Mirtazapine (Remeron)] 30 mg PO HS 07/07/17 Multivitamins [Multivitamin Ilia] 1 cap PO DAILY 07/07/17 Amb Orders for Discharge: Culture Abscess Location: Determined By Patient
== END 2017-06-23 09:56 | disposition home or self-care (01) | DRG 479 ==
LOC: MS 14:51
PROVIDERS: ADMIT Internal Medicine; ATTEND Internal Medicine
PROC: 0PBK0ZX Excision of Right Ulna, Open Approach, Diagnostic (ICD-10-PCS; 2017-06-20)
PROC: 0MB30ZZ Excision of Right Elbow Bursa and Ligament, Open Approach (ICD-10-PCS; principal; 2017-06-20 14:15)
DX: M71.121 Other infective bursitis, right elbow (principal); B95.62 Methicillin resistant Staphylococcus aureus infection as the cause of diseases classified elsewhere; L89.899 Pressure ulcer of other site, unspecified stage; Z89.511 Acquired absence of right leg below knee; I10 Essential (primary) hypertension; E78.5 Hyperlipidemia, unspecified; I25.10 Atherosclerotic heart disease of native coronary artery without angina pectoris; G62.9 Polyneuropathy, unspecified; I25.2 Old myocardial infarction; Z95.5 Presence of coronary angioplasty implant and graft; Z79.82 Long term (current) use of aspirin

== ENCOUNTER 2017-07-08 10:57 | Day surgery (SDC) | payer MEDICARE ==
[~2017-07-08 10:57] MED LIST: RINGER'S SOLUTION,LACTATED 1,000 ML IV PRN; VANCOMYCIN HCL 1 GM in DEXTROSE 5 % IN WATER 250 ML IV PRN; ceFAZolin SODIUM 1 GM VIAL IV PRN
[2017-07-08] MEDS ORDERED: RINGER'S SOLUTION,LACTATED 1,000 ML IV ONE (11:30)
[2017-07-08] MEDS ORDERED: BUPIVACAINE HCL 50 ML VIAL IJ ONE (13:05)
[2017-07-08] MEDS ORDERED: RINGER'S SOLUTION,LACTATED 1,000 ML IV PRN (14:46)
[2017-07-08] MEDS ORDERED: oxyCODONE HCL/ACETAMINOPHEN 1 TAB TABLET PO PRN (14:47)
[2017-07-08] MEDS ORDERED: HYDROmorphone HCL 2 MG/ML VIAL IV PRN (14:48)
[2017-07-08 15:23] VITALS: BP 115/69
== END 2017-07-08 10:58 | disposition home or self-care (01) ==
LOC: AMB 10:57
PROVIDERS: ATTEND Orthopaedic Surgery
PROC: 0JQG3ZZ Repair Right Lower Arm Subcutaneous Tissue and Fascia, Percutaneous Approach (ICD-10-PCS; principal; 2017-07-08 15:00)
DX: T81.31XA Disruption of external operation (surgical) wound, not elsewhere classified, initial encounter (principal); I10 Essential (primary) hypertension; E78.5 Hyperlipidemia, unspecified; J45.909 Unspecified asthma, uncomplicated; I25.10 Atherosclerotic heart disease of native coronary artery without angina pectoris; F17.200 Nicotine dependence, unspecified, uncomplicated; Z68.1 Body mass index [BMI] 19.9 or less, adult

== ENCOUNTER 2017-08-03 08:46 | Day surgery (SDC) | payer MEDICARE ==
[~2017-08-03 08:46] MED LIST changes: +VANCOMYCIN HCL 1 GM VIAL TP PRN
[2017-08-03] MEDS ORDERED: RINGER'S SOLUTION,LACTATED 1,000 ML IV ONE ×2 (09:49→11:50)
[2017-08-03 13:07] VITALS: BP 121/52
== END 2017-08-03 08:47 | disposition home or self-care (01) ==
LOC: AMB 08:46
PROVIDERS: ATTEND Orthopaedic Surgery
PROC: 0JQG3ZZ Repair Right Lower Arm Subcutaneous Tissue and Fascia, Percutaneous Approach (ICD-10-PCS; principal; 2017-08-03 11:30)
DX: T81.31XD Disruption of external operation (surgical) wound, not elsewhere classified, subsequent encounter (principal); I10 Essential (primary) hypertension; E78.5 Hyperlipidemia, unspecified; I25.10 Atherosclerotic heart disease of native coronary artery without angina pectoris; J45.909 Unspecified asthma, uncomplicated; F17.210 Nicotine dependence, cigarettes, uncomplicated; Z68.1 Body mass index [BMI] 19.9 or less, adult

== ENCOUNTER 2019-05-08 10:23 | Observation (INO) ==
[2019-05-08] MEDS ORDERED: NORMAL SALINE 1,000 ML IV ONE (10:36)
[2019-05-08 10:49] LABS: Hematocrit 34.3 % (42.0-52.0); Hemoglobin 11.8 gm/dL (13.5-18.0); Mean Cell Volume 97.4 fl (78-100); Mean Corpuscular Hemoglobin 33.5 pg (27-31); Mean Corpuscular Hgb Conc 34.4 g/dl (32-36); Mean Platelet Volume 10.5 fl (8-11.3); Platelet Count 311 K/mm3 (150-450); Red Blood Count 3.52 M/mm3 (4.7-6.0); Red Cell Distribution Width 15.8 % (11.5-14.0); White Blood Count 8.3 K/mm3 (4.0-10.5)
--- NOTE | 2019-05-08 10:51 | ERNOTE ---
Syncope ER HPI Date of Service: 05/08/19 Stated Complaint: cant stand Time Seen by Provider: 05/08/19 10:31 Source: patient, RN notes reviewed Exam Limitations: no limitations Immunizations: IMMUNIZATION HX Immunizations Up to Date Yes History of Influenza Vaccine No Hx Pneumococcal Vaccination No Allergies/Adverse Reactions: Allergies Iodinated Contrast- Oral and IV Dye [IV Dye, Iodine Containing Contrast ] Allergy (Severe, Verified 05/08/19 10:28) Swelling (Other) Pt states swelling "all over." Home Medications: HOME MEDICATIONS Naproxen Sodium [Aleve] 220 mg PO Q12H PRN 09/24/14 [Last Taken 10/25/15] Nitroglycerin [Nitrolingual] 1 spray TL [id number] PRN 06/14/17 [Last Taken Unknown] multivitamin tablet 1 tab PO DAILY 05/22/18 [Last Taken Unknown] gabapentin 600 mg tablet 1,200 mg PO TID 90 Days #540 tab 02/20/19 [Last Taken Unknown] - History of Present Illness Narrative: Jose J is a 63 year old male brought to the ED by his brother for weakness and syncopal episodes. He became syncopal while the nurse was helping him out of the car on arrival. He has a long history of alcohol abuse and stopped drinking about a week ago. He reports being so weak that he has to crawl around on the floor and find something to hang onto just to be able to get up. He reports that he has not been eating much at all but has been drinking a lot of water. He denies any vomiting or diarrhea. He denies any chest pain. He lives alone. Prior Episodes: Present: multiple episodes today - and for the past few days Symptoms prior to episode: Present: none Activity at time of episode: Present: other - when attempting to stand Location of Injury: Present: other - reports hitting his head several times, denies other injuries Current Symptoms: Present: back to normal Prior Treament: Denies: recently seen Review of Systems - Review of Systems Constitutional: Present: malaise, decreased activity level. Absent: recent illness, fever, chills EYE: Absent: eye pain, vision changes ENT: Absent: ear pain, nose congestion, sore throat Respiratory: Absent: shortness of breath, cough Cardiology: Present: syncope. Absent: chest pain, palpitations, edema Gastrointestinal/Abdominal: Present: eating less. Absent: nausea, vomiting, diarrhea, abdominal pain, drinking less Genitourinary: Absent: dysuria, decreased urinary output Musculoskeletal: Absent: back pain, neck pain, joint pain Skin: Present: lesions - numerous small abrasions, mostly to left leg. Absent: rash, lumps Neurological: Present: weakness. Absent: headache, dizziness/light-headedness, seizure Endocrine: Present: no symptoms reported Hematologic/Lymphatic: Absent: easy bruising, easy bleeding Psych: Present: no symptoms reported Medical History (Updated 08/30/18 @ 16:12 by Winnie Jara MD) Vitamin B12 deficiency (Chronic) Bursitis (Chronic) Neuropathy (Chronic) MRSA (methicillin resistant staph aureus) culture positive (Chronic) Hypertension (Chronic) Hyperlipidemia (Chronic) Depression (Chronic) Coronary artery disease (Chronic) Asthma (Chronic) Alcohol abuse now abstient Back pain Cervical spinal stenosis Closed fracture Myocardial infarction abcess large right pulmonary abcess Surgical History: Surgical History (Updated 05/22/18 @ 10:36 by Sukumar Donnelly LPN) Complete below knee amputation of right lower extremity Rt below knee amputation---work related accident---staph infection revision 12-16-14 Revision with excision of bone 03-19-15 H/O cervical spine surgery Dr Anaya - placement of the C6 vertebral body with vertebral body prosthesis, anterior cervical instrumentation C5-C6 and 7, local bone graft H/O colonoscopy 2009 dr morales H/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 LMCA normal. LAD occluded. 50% LCx stenosis. RCA normal. stent to the LAD History of heart artery stent stent to the LAD using a 3.0x15 and 3.0x8 mm vision bare metal stents bursa ecision excision of right olecranon bursa with partial resection of proximal ulna Dr. Scott irrigation elbow Irrigation and debridement of right olecranon bursa, complex closure of 6cm wound application of long arm cast per Dr Scott--I&D of right elbow wound dehiscence with complex closure of wound approximately 6cm Dr. Scott Family History: Family History (Last Reviewed 08/15/18 @ 09:05 by Chantell Pond RN) Mother , [place] No problems noted. Social History: Preferred Language Kazakh Do you have any muslim or No cultural preference? Smoking Status Current every day smoker Abuse History Hx -Substance Use Tx Psych History Hx of Anxiety,Hx of Depression Alcohol Use heavy Drug Use benzodiazepine (Last Updated 08/30/18 @ 16:16 by Winnie Jara MD) No Social History Section defined Physical Exam - Physical Exam General Appearance: Present: alert, mild distress, thin Head Exam: Present: normal inspection, no evidence of injury Eye Exam: Normal inspection: bilateral, PERRL: bilateral, EOMI: bilateral Ears, Nose, Throat: Present: normal except - - poor dentition Neck: Present: normal inspection, nontender, supple, full range of motion Respiratory: Present: no respiratory distress, normal breath sounds, no accessory muscle use, lungs clear Cardiovascular/Chest: Present: no murmur, tachycardia Gastrointestinal/Abdominal: Present: nontender, nondistended, soft Extremity Exam: Present: normal except - - Right BKA Neurological Exam: Present: alert, oriented, normal mood/affect, no motor/sensory deficits Skin Exam: Present: normal color, warm/dry Progress - Results and Orders Patient's Lab Results:: I have reviewed the patient's lab results. - Vital Signs Patient's Vital Signs:: I have reviewed the patient's vital signs. Vital Signs: Vital Signs 05/08/19 10:23 Temperature 36.4 C Pulse Rate 105 H Respiratory Rate 19 Blood Pressure 115/78 O2 Sat by Pulse Oximetry 97 - EKG EKG #1 EKG: nonspecific ST T wave changes EKG read: Reviewed by me - Sinus tach, rate 119 with occ PAC's - CT/Ultrasound CT/Ultrasound Narrative: Head CT is without acute intracranial findings - Progress/Reassessment Chief Complaint: Syncopal Episode Progress:: Unchanged Plan - Plan Plan: Patient shows no signs of acute alcohol withdrawal, normal head CT. His potassium is 2.4. A K-rider was ordered. Dr. Jara was contacted and the patient will be admitted to observation status for potassium replacement as it is unlikely he would be able to accomplish this at home given his syncopal episodes and recurrent falls. An additional 2 K-riders were ordered as well as replacement fluids with potassium. Departure Clinical Impression: Hypokalemia Syncope Qualifiers: Syncope type: unspecified Qualified Code(s): R55 - Syncope and collapse - Departure Disposition: Still a patient Condition: Stable
[2019-05-08 10:52] LABS: Total Cells Counted 100
[2019-05-08 11:00] LABS: INR 1.02 INR (0.92-1.08); Partial Thrombolplastin Time 24.8 Seconds (24-32); Prothrombin Time (Patient) 10.1 Seconds (9.1-10.7)
[2019-05-08 11:03] LABS: Atypical (Reactive) Lymph 5 % (0-2); Eosinophil 1 % (0-3); Lymphocyte 16 % (20-51); Monocyte 9 % (0-9); Neutrophil 69 % (42-75); Neutrophil # 5.7 K/mm3 (1.3-6.0); Platelet Estimate Normal (NORMAL); RBC Morphology Normal (NORMAL)
[2019-05-08 11:06] LABS: Blood Urea Nitrogen 13 mg/dL (6-23); Carbon Dioxide 35.3 mmol/L (24-32.6); Chloride 92 mmol/L (97-106); Glucose * 120 mg/dL (70-110); Sodium 132 mmol/L (132-142)
[2019-05-08 11:07] LABS: ALT 39 U/L (19-67); AST 74 U/L (0-48); Albumin * 2.9 gm/dl (3.4-5.0); Alkaline Phosphatase * 174 U/L (50-170); Anion Gap 7.1 mmol/L (6.8-13.8); Bilirubin, Total 0.7 mg/dL (0.0-1.1); Ca. Corrected For Albumin 9.7 mg/dL (8.4-10.2); Calcium * 9.1 mg/dL (7.9-10.9); Potassium 2.4 mmol/L (3.4-4.6); Total Protein 6.7 gm/dL (6.2-8.2); Troponin I Less than 0.017 ng/mL (0.00-0.10)
[2019-05-08] MEDS ORDERED: POTASSIUM CHLORIDE IN WATER 100 ML IV ONE ×3 (11:11→20:03)
[2019-05-08] MEDS ORDERED: NORMAL SALINE 1,000 ML IV PRN (12:20)
[2019-05-08 12:29] LABS: Urine Bilirubin Negative (NEGATIVE); Urine Blood Negative /ul (NEGATIVE); Urine Ketone Negative (NEGATIVE); Urine Nitrite Negative (NEGATIVE); Urine Protein Negative (NEGATIVE); Urine Specific Gravity <=1.005 SP.GR. (1.005-1.030); Urine Urobilinogen 4 EU/dl (NORMAL)
[2019-05-08 12:35] LABS: Urine Appearance Clear (CLEAR); Urine Bacteria None Seen; Urine Color Yellow; Urine RBC None Seen /hpf (0-5); Urine WBC 0-5 /hpf (0-5)
[2019-05-08] MEDS: POTASSIUM CHLORIDE 10 MEQ in NORMAL SALINE 1,000 ML IV SCH ×2 (12:42→23:29)
[2019-05-08 12:45] LABS: Cocaine Ur Negative (NEGATIVE); Urine Barbiturate Negative (NEGATIVE); Urine Benzodiazepines Negative (NEGATIVE); Urine Opiates Negative (NEGATIVE); Urine PCP Negative (NEGATIVE); Urine THC Negative (NEGATIVE)
[2019-05-08] MEDS: POTASSIUM CHLORIDE IN WATER 100 ML IV SCH ×2 (12:57→15:11)
--- NOTE | 2019-05-08 13:07 | HP ---
Chief Complaint - Chief Complaint Date of Service: 05/08/19 Time of Service: 12:54 Chief Complaint: generalized weakness/falls History of Present Illness: Jose J Decker is a 63 year old white male with PMH of CAD s/p Stenting to LAD, Hypertension, Right BKA, Cervical spinal stenoses s/p decompression with hardware stabilization who was admitted on 05/08/2019 for generalized weakness and falls, some which were syncopal. 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 He had to crawl on the floor at times and need to hold onto some support to stand up. He does have right BKA. He had stopped drinking 1 week ago. He used to drink heavily in the past but stopped and then resumed again. he decided to stop permanently 1 week ago. He says his appetite has been down and has not been eating good. He denies CP, SOB, palpitation, N/V, diarrhea, slurring of speech, focal weakness but admits to constipation. In the ED he was found to have a K of 2.4 and EKG showing Sinus tachycardia with a brief episode of supraventricular run. Medical History (Updated 05/08/19 @ 15:27 by Winnie Jara MD) Vitamin B12 deficiency (Chronic) Bursitis (Chronic) Neuropathy (Chronic) MRSA (methicillin resistant staph aureus) culture positive (Chronic) Hypertension (Chronic) Hyperlipidemia (Chronic) Depression (Chronic) Coronary artery disease (Chronic) Asthma (Chronic) Alcohol abuse now abstient Back pain Cervical spinal stenosis Closed fracture Myocardial infarction abcess large right pulmonary abcess Surgical History: Surgical History (Updated 05/08/19 @ 13:07 by Winnie Jara MD) Complete below knee amputation of right lower extremity Rt below knee amputation---work related accident---staph infection revision 12-16-14 Revision with excision of bone 03-19-15 H/O cervical spine surgery Dr Anaya - placement of the C6 vertebral body with vertebral body prosthesis, anterior cervical instrumentation C5-C6 and 7, local bone graft H/O colonoscopy 2009 dr morales H/O elbow surgery portfolio mgr based fascioucutaneous flap to his right elbow with wound closure [facility] 01-19-18 History of cardiac cath ST elevation anterior wall AR. LMCA normal. LAD occluded. 50% LCx stenosis. RCA normal. stent to the LAD History of heart artery stent stent to the LAD using a 3.0x15 and 3.0x8 mm vision bare metal stents bursa ecision excision of right olecranon bursa with partial resection of proximal ulna Dr. Scott irrigation elbow Irrigation and debridement of right olecranon bursa, complex closure of 6cm wound application of long arm cast per Dr Scott--I&D of right elbow wound dehiscence with complex closure of wound approximately 6cm Dr. Scott Family History: Family History (Updated 05/08/19 @ 13:32 by Jo-Ann Urias, NIRANJAN) Mother , [place] No problems noted. Other Patient's mother is Social History: Preferred Language Azerbaijani Do you have any episcopalian or No cultural preference? Smoking Status Current every day smoker Abuse History Hx -Substance Use Tx Psych History Hx of Anxiety,Hx of Depression Alcohol Use heavy Drug Use benzodiazepine (Last Updated 08/30/18 @ 16:16 by Winnie Jara MD) No Social History Section defined Review Of Systems (GEN) - Review of Systems Generalized/Overall Review: Present: Weakness. Absent: Chills, Fever EENTM: Absent: Blurred Vision Respiratory: Absent: Cough, Shortness of Breath, Orthopnea Cardiac: Absent: Chest Pain, Edema, Palpitations Abdominal: Present: Constipation. Absent: Nausea, Vomiting, Abdominal Pain Genitourinary: Absent: Urgency, Frequency Musculoskeletal: Present: Joint Pain Neurological: Absent: Headache Skin: Absent: Lesions, Rash Endocrine: Absent: Intolerance to Cold, Intolerance to Heat Misc: All systems neg except as marked Immunizations: IMMUNIZATION HX Immunizations Up to Date Yes History of Influenza Vaccine No Hx Pneumococcal Vaccination No Allergies/Adverse Reactions: Allergies Allergy/AdvReac Type Severity Reaction Status Date / Time Iodinated Contrast- Oral and Allergy Severe Swelling Verified 05/08/19 10:28 IV Dye (Other) [IV Dye, Iodine Containing Contrast ] Home Medications: HOME MEDICATIONS Naproxen Sodium [Aleve] 220 mg PO Q12H PRN 09/24/14 [Last Taken 10/25/15] Nitroglycerin [Nitrolingual] 1 spray TL [id number] PRN 06/14/17 [Last Taken Unknown] multivitamin tablet 1 tab PO DAILY 05/22/18 [Last Taken Unknown] gabapentin 600 mg tablet 1,200 mg PO TID 90 Days #540 tab 02/20/19 [Last Taken Unknown] Exam - Exam Vital Signs: Vital Signs - Last Taken Temp 36.4 C 05/08/19 10:23 Pulse 106 H 05/08/19 12:17 Resp 12 05/08/19 12:17 BP 125/87 05/08/19 12:17 Pulse Ox 91 L 05/08/19 12:17 Constitutional: Present: Alert, Oriented x3, Cooperative ENT Exam: Present: hearing grossly normal Eye Exam: bilateral eye: normal inspection, PERRL, EOMI Neck: Present: supple. 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, no motor/sensory deficits, oriented x 3 Diagnostic Studies: Abnormal Lab Results 05/08/19 05/08/19 05/08/19 Range/Units 10:44 10:44 Unknown RBC 3.52 L (4.7-6.0) M/mm3 Hgb 11.8 L (13.5-18.0) gm/dL Hct 34.3 L (42.0-52.0) % MCH 33.5 H (27-31) pg RDW 15.8 H (11.5-14.0) % Lymphocytes % (Manual) 16 L (20-51) % Lymphocytes # (Manual) 1.3 L (1.5-3.5) k/mm3 Atypic/Reactive Lymphs 5 H (0-2) % Potassium 2.4 L* D (3.4-4.6) mmol/L Chloride 92 L (97-106) mmol/L Carbon Dioxide 35.3 H (24-32.6) mmol/L Est GFR (Non-Af Amer) 138 H (60-130) mL/min Random Glucose 120 H (70-110) mg/dL AST 74 H (0-48) U/L Alkaline Phosphatase 174 H (50-170) U/L Albumin 2.9 L (3.4-5.0) gm/dl Urine Urobilinogen 4 H (NORMAL) EU/dl Laboratory Results WBC 8.3 K/mm3 (4.0-10.5) 05/08/19 10:44 RBC 3.52 M/mm3 (4.7-6.0) L 05/08/19 10:44 Hgb 11.8 gm/dL (13.5-18.0) L 05/08/19 10:44 Hct 34.3 % (42.0-52.0) L 05/08/19 10:44 MCV 97.4 fl (78-100) 05/08/19 10:44 MCH 33.5 pg (27-31) H 05/08/19 10:44 MCHC 34.4 g/dl (32-36) 05/08/19 10:44 RDW 15.8 % (11.5-14.0) H 05/08/19 10:44 Plt Count 311 K/mm3 (150-450) 05/08/19 10:44 MPV 10.5 fl (8-11.3) 05/08/19 10:44 69 % (42-75) 05/08/19 10:44 16 % (20-51) L 05/08/19 10:44 9 % (0-9) 05/08/19 10:44 1 % (0-3) 05/08/19 10:44 5.7 K/mm3 (1.3-6.0) 05/08/19 10:44 1.3 k/mm3 (1.5-3.5) L 05/08/19 10:44 0.7 k/mm3 (0.0-1.0) 05/08/19 10:44 0.1 k/mm3 (0.0-0.7) 05/08/19 10:44 Atypic/Reactive Lymphs 5 % (0-2) H 05/08/19 10:44 Normal (NORMAL) 05/08/19 10:44 RBC Morphology Normal (NORMAL) 05/08/19 10:44 PT 10.1 Seconds (9.1-10.7) 05/08/19 10:44 INR (Anticoag Therapy) 1.02 INR (0.92-1.08) 05/08/19 10:44 PTT (Hinds) 24.8 Seconds (24-32) 05/08/19 10:44 Sodium 132 mmol/L (132-142) 05/08/19 10:44 132 mmol/L (130-142) 05/08/19 10:44 Potassium 2.4 mmol/L (3.4-4.6) L* D 05/08/19 10:44 Chloride 92 mmol/L (97-106) L 05/08/19 10:44 Carbon Dioxide 35.3 mmol/L (24-32.6) H 05/08/19 10:44 7.1 mmol/L (6.8-13.8) 05/08/19 10:44 BUN 13 mg/dL (6-23) D 05/08/19 10:44 0.62 mg/dL (0.4-1.4) 05/08/19 10:44 Est GFR (Non-Af Amer) 138 mL/min (60-130) H 05/08/19 10:44 21.0 (9.0-21.6) 05/08/19 10:44 120 mg/dL (70-110) H 05/08/19 10:44 Calcium 9.1 mg/dL (7.9-10.9) 05/08/19 10:44 Calcium Adj for Albumin 9.7 mg/dL (8.4-10.2) 05/08/19 10:44 0.7 mg/dL (0.0-1.1) 05/08/19 10:44 AST 74 U/L (0-48) H 05/08/19 10:44 ALT 39 U/L (19-67) 05/08/19 10:44 174 U/L (50-170) H 05/08/19 10:44 Less than 17.0 mcmol/L (11-35) 05/08/19 10:44 Less than 0.017 ng/mL (0.00-0.10) 05/08/19 10:44 6.7 gm/dL (6.2-8.2) 05/08/19 10:44 2.9 gm/dl (3.4-5.0) L 05/08/19 10:44 Yellow 05/08/19 Unknown Clear (CLEAR) 05/08/19 Unknown 7.0 pH (5.0-7.0) 05/08/19 Unknown Ur Specific [place] <=1.005 SP.GR. (1.005-1.030) 05/08/19 Unknown Negative mg/dL (NEGATIVE) 05/08/19 Unknown Negative mg/dL (NEGATIVE) 05/08/19 Unknown Negative mg/dL (NEGATIVE) 05/08/19 Unknown Negative /ul (NEGATIVE) 05/08/19 Unknown Negative (NEGATIVE) 05/08/19 Unknown Negative mg/dl (NEGATIVE) 05/08/19 Unknown 4 EU/dl (NORMAL) H 05/08/19 Unknown Ur Leukocyte Esterase Negative /ul (NEGATIVE) 05/08/19 Unknown None seen /hpf (0-5) 05/08/19 Unknown 0-5 /hpf (0-5) 05/08/19 Unknown Ur Epithelial Cells 0-5 /hpf (0-5) 05/08/19 Unknown None seen (NONE) 05/08/19 Unknown No culture indicated 05/08/19 Unknown Negative (NEGATIVE) 05/08/19 Unknown Negative (NEGATIVE) 05/08/19 Unknown Ur Phencyclidine Scrn Negative (NEGATIVE) 05/08/19 Unknown Urine Amphetamine Negative (NEGATIVE) 05/08/19 Unknown U Benzodiazepines Scrn Negative (NEGATIVE) 05/08/19 Unknown Negative (NEGATIVE) 05/08/19 Unknown Negative (NEGATIVE) 05/08/19 Unknown Ethyl Alcohol Less than 3.0 mg/dL (0.0-10.0) 05/08/19 10:44 Assessment/Plan - Assessment/Plan (1) Hypokalemia Assessment: will replace KCl. continue with telemetry. Problem: Acute (2) Seizure-like activity Assessment: r/o due to alcohol withdrawal. Problem: Acute (3) Frequent falls Assessment: refer to PT. will do orthostatics. continue with IVF. Problem: Acute (4) Syncope Assessment: will do EEG. continue with IVF , do orthostatic. Problem: Acute Qualifiers: Syncope type: unspecified Qualified Code(s): R55 - Syncope and collapse (5) Generalized weakness Assessment: due to deconditioning and poor PO intake with malnutrition. will refer to PT. Problem: Acute (6) Neuropathy Problem: Chronic (7) Hypertension Problem: Chronic Qualifiers: Hypertension type: essential hypertension Qualified Code(s): I10 - Essential (primary) hypertension (8) Hyperlipidemia Problem: Chronic (9) Coronary artery disease Problem: Chronic
[2019-05-08] MEDS ORDERED: NITROGLYCERIN TL PRN (14:35)
[2019-05-08] MEDS ORDERED: POTASSIUM CHLORIDE 20 MEQ TABLET.SA PO ONE ×2 (14:45→20:30)
[2019-05-08] MEDS: GABAPENTIN 600 MG TABLET PO SCH ×2 (15:04→21:01)
[2019-05-08] MEDS ORDERED: NITROGLYCERIN 0.4 MG/TAB BTL SL PRN (15:28)
[2019-05-08] MEDS ORDERED: LORazepam 2 MG/ML DISP.SYRIN IV PRN (15:32)
[2019-05-08 18:17] LABS: Anion Gap 7.2 mmol/L (6.8-13.8); Calcium * 8.5 mg/dL (7.9-10.9); Carbon Dioxide 32.7 mmol/L (24-32.6); Estimated Creat Clear 140.4; Potassium 2.9 mmol/L (3.4-4.6)
[2019-05-08] MEDS ORDERED: MIRTAZAPINE 15 MG TABLET PO SCH (21:00)
[2019-05-09 05:55] LABS: Anion Gap 8.3 mmol/L (6.8-13.8); BUN/Creatinine Ratio 18.9 (9.0-21.6); Calcium * 8.4 mg/dL (7.9-10.9); Carbon Dioxide 30.8 mmol/L (24-32.6); Estimated Creat Clear 161.6; Potassium 4.1 mmol/L (3.4-4.6)
[2019-05-09] MEDS: GABAPENTIN 600 MG TABLET PO SCH ×2 (07:03→13:41)
--- NOTE | 2019-05-09 08:25 | PN ---
Progess Note - Interim Date: 05/09/19 Time: 08:22 Narrative: 05/09/19 08:22 K is back to normal 4.1. possible discharge today pending EEG and PT recommendation- if safe and not a fall risk.
[2019-05-09] MEDS ORDERED: MULTIVITAMINS 1 CAP CAPSULE PO SCH (09:00)
[2019-05-09] MEDS: POTASSIUM CHLORIDE 10 MEQ in NORMAL SALINE 1,000 ML IV SCH (14:24)
--- NOTE | 2019-05-09 15:43 | DS ---
(1) Hypokalemia Problem: Resolved (2) Seizure-like activity Diagnosis(s): likely due to alcohol withdrawal Problem: Resolved (3) Frequent falls Problem: Acute (4) Syncope Problem: Resolved Qualifiers: Syncope type: unspecified Qualified Code(s): R55 - Syncope and collapse (5) Generalized weakness Problem: Acute (6) Neuropathy Problem: Chronic (7) Hypertension Problem: Chronic Qualifiers: Hypertension type: essential hypertension Qualified Code(s): I10 - Essential (primary) hypertension (8) Hyperlipidemia Problem: Chronic (9) Coronary artery disease Problem: Chronic Description of Stay: Jose J Decker is a 63 year old white male with PMH of CAD s/p Stenting to LAD, Hypertension, Right BKA, Cervical spinal stenoses s/p decompression with hardware stabilization who was admitted on 05/08/2019 for generalized weakness and falls, some which were syncopal. 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 He had to crawl on the floor at times and need to hold onto some support to stand up. He does have right BKA. He had stopped drinking 1 week ago. He used to drink heavily in the past but stopped and then resumed again. He decided to stop permanently 1 week ago. He says his appetite has been down and has not been eating good. He denies CP, SOB, palpitation, N/V, diarrhea, slurring of speech, focal weakness but admits to constipation. In the ED he was found to have a K of 2.4 and EKG showing Sinus tachycardia with a brief episode of supraventricular run. His k was replenished with K riders and oral potassium. He was referred to PT and he does have problem with his below knee prosthesis which has become loose due to his overall weight loss. An appointment with [facility] has been done for Tuesday for a possible new mould and new prosthesis. In the meantime , he is ambulating with wheelchair. He refuses home PT as recommended by our PT. We have started him on Remeron to help with is appetite. His EEG report is still pending. He is anyway also on gabapentin for his neuropathy. he is stable to be discharged and follow up with me in 1 week. Will give him a K rich diet list. Procedures Performed: none Results and Findings: Lab Pending Results 05/08/19 10:44: WBC 8.3, RBC 3.52 L, Hgb 11.8 L, Hct 34.3 L, MCV 97.4, MCH 33.5 H, MCHC 34.4, RDW 15.8 H, Plt Count 311, MPV 10.5, Neutrophils % (Manual) 69, Lymphocytes % (Manual) 16 L, Monocytes % (Manual) 9, Eosinophils % (Manual) 1, Neutrophils # (Manual) 5.7, Lymphocytes # (Manual) 1.3 L, Monocytes # (Manual) 0.7, Eosinophils # (Manual) 0.1, Atypic/Reactive Lymphs 5 H, Platelet Estimate Normal, RBC Morphology Normal 05/08/19 10:44: Sodium 132, Plasma Sodium 132, Potassium 2.4 L* D, Chloride 92 L, Carbon Dioxide 35.3 H, Anion Gap 7.1, BUN 13 D, Creatinine 0.62, Est GFR (Non-Af Amer) 138 H, BUN/Creatinine Ratio 21.0, Random Glucose 120 H, Calcium 9.1, Calcium Adj for Albumin 9.7, Total Bilirubin 0.7, AST 74 H, ALT 39, Alkaline Phosphatase 174 H, Troponin I Less than 0.017, Total Protein 6.7, Albumin 2.9 L, Ethyl Alcohol Less than 3.0 05/08/19 10:44: PT 10.1, INR (Anticoag Therapy) 1.02, PTT (Letty) 24.8 05/08/19 10:44: Ammonia Less than 17.0 05/08/19 18:05: Sodium 137, Plasma Sodium 137, Potassium 2.9 L D, Chloride 100, Carbon Dioxide 32.7 H, Anion Gap 7.2, BUN 11, Creatinine 0.61, Est GFR (Non-Af Amer) 141 H, BUN/Creatinine Ratio 18.0, Random Glucose 122 H, Calcium 8.5 05/08/19 : Urine Color Yellow, Urine Appearance Clear, Urine pH 7.0, Ur Specific [place] <=1.005, Urine Protein Negative, Urine Glucose (UA) Negative, Urine Ketones Negative, Urine Blood Negative, Urine Nitrate Negative, Urine Bilirubin Negative, Urine Urobilinogen 4 H, Ur Leukocyte Esterase Negative, Urine RBC None seen, Urine WBC 0-5, Ur Epithelial Cells 0-5, Urine Bacteria None seen, Urine Culture Comments No culture indicated 05/08/19 : Urine Opiates Screen Negative, Barbiturate Screen Negative, Ur Phencyclidine Scrn Negative, Urine Amphetamine Negative, U Benzodiazepines Scrn Negative, Urine Cocaine Screen Negative, Urine Marijuana (THC) Negative 05/09/19 05:15: Sodium 140, Plasma Sodium 140, Potassium 4.1 D, Chloride 105, Carbon Dioxide 30.8, Anion Gap 8.3, BUN 10, Creatinine 0.53, Est GFR (Non-Af Amer) 166 H, BUN/Creatinine Ratio 18.9, Random Glucose 97, Calcium 8.4 Discharge Location: Home Disposition: Home self-care Condition: Stable Discharge Activity: Activity as tolerated Discharge Diet: Low fat/chol, Other - Potassium rich diet Referrals: Winnie Jara MD [Primary Care Provider] - Additional Patient Instructions (free text): -Please make TCM appointment unless [facility] discharge or following up with an outside provider. Thank you! Joyce @ [email or web address]. Appointment with [facility] in [place] on TuesdayMay 14 at 10:10am for evaluation of prosthetic. Prescriptions (Any new or edited meds): Mirtazapine [Remeron] 15 mg PO HS #30 tab Complete Home Medications List: Complete Home Medication List: Naproxen Sodium [Aleve] 220 mg PO Q12H PRN 09/24/14 Nitroglycerin [Nitrolingual] 1 spray TL [id number] PRN 06/14/17 multivitamin tablet 1 tab PO DAILY 05/22/18 gabapentin 600 mg tablet 1,200 mg PO TID 90 Days #540 tab 02/20/19 Mirtazapine [Remeron] 15 mg PO HS #30 tab 05/09/19
[2019-05-09 16:49] VITALS: BP 104/68
== END 2019-05-09 16:58 | disposition home or self-care (01) ==
LOC: MS 10:23 → ER 10:23 → MS 12:25
PROVIDERS: ADMIT Internal Medicine; ATTEND Internal Medicine
DX: E78.5 Hyperlipidemia, unspecified; W19.XXXA Unspecified fall, initial encounter; R55 Syncope and collapse; R53.1 Weakness; I25.10 Atherosclerotic heart disease of native coronary artery without angina pectoris; I10 Essential (primary) hypertension; G62.9 Polyneuropathy, unspecified; E87.6 Hypokalemia
CPT/HCPCS: 36415; 70450; 80048; 80053; 80307; 80320; 81001; 82140; 84484; 85025; 85610; 85730; 87081; 93005; 95813; 96361; 96365; 96366; 97110; 97162; 97530; 99285; G0378; G0481